=== PATIENT | female | born 1990 | race Caucasian/White ===

== ENCOUNTER 2016-11-21 15:28 | Emergency (ER) | payer BC ==
--- NOTE | ~2016-11-21 | CT71 ---
[facility] A Service [facility] RADIOLOGY TEXT RESULTS PATIENT: SHAKILA MARC LOCATION: SED : 88 UNIT #: [id number] AGE: [address]: Fermin Monge MD SEX: F ORDER DR: [id number] [place] [id number] E MR#: [id number] Acc #: [id number] NAME: SHAKILA MARC : 1990 SEX: F STUDY DATE/TIME: 11/21/2016 16:27 UNIT: SED ROOM: STUDY DESCRIPTION: CT Head Wo Contrast Attending Physician: Fermin Monge M.D. Ordering Physician: Fermin Monge M.D. Primary Care Physician: Clive Bond P.A.-C. MEDICAL IMAGING REPORT This report is preliminary unless electronic signature is present. EXAM CT head INDICATIONS Seizure day TECHNIQUE CT head without contrast. This CT exam was performed with one or more of the following radiation dose reduction techniques: automatic exposure control, adjustment of mA and/or kV according to patient size, and iterative reconstruction. COMPARISON CT head 08/03/2014 FINDINGS Ventricular size and configuration are normal. There is no evidence of acute infarct or hemorrhage. There are no extraaxial fluid collections. No mass lesion or mass effect is seen. There are no skull fractures. IMPRESSION Normal noncontrast head CT. Dictated by... Tanvir Bonds M.D. THIS IS AN ELECTRONICALLY VERIFIED REPORT Tanvir Bonds M.D. at 11/22/2016 9:54 AM [facility]/cynthia TD: 11/21/2016 17:20 JOB #: [id number] [facility] A Service [facility] RADIOLOGY TEXT RESULTS PATIENT: SHAKILA MARC LOCATION: SED : [birth year] UNIT #: [id number] AGE: [address]: Fermin Monge MD SEX: F ORDER DR: MEDICAL IMAGING REPORT Page 1 of 1
[~2016-11-21 15:28] MED LIST: BIRTH CONTROL PILL PO; CIPRO PO; DOXYCYCLINE HY100 M1 PO; FLEXERIL10 MG PO; METRONIDAZOLE PO; NAPROSYN500 MG PO; NO MEDICATIONS; PARAFON FORTE500 MG PO; ROBAXIN500 MG PO; RYBIX ODT50 MG PO; ULTRAM PO; VOLTAREN75 MG PO
[2016-11-21 16:05] LABS: URINE SOURCE CLEAN CATCH
[2016-11-21 16:08] LABS: URINE APPEARANCE CLEAR; URINE BILIRUBIN NEG (NEG); URINE BLOOD NEG (NEG); URINE COLOR YELLOW; URINE GLUCOSE NEG (NORM); URINE KETONE NEG (NEG); URINE LEUKOCYTE ESTERASE NEG (NEG); URINE NITRATE NEG (NEG); URINE PH 6.5 (5-8); URINE PROTEIN NEG (NEG); URINE SPECIFIC GRAVITY 1.025 (1.003-1.035); URINE UROBILINOGEN 0.2 MG/DL (NORM)
[2016-11-21 16:10] LABS: MICRO INDICATED? NO
[2016-11-21 16:18] LABS: AMPHETAMINE NEG (NEG); BARBITURATES NEG (NEG); BENZODIAZEPINES NEG (NEG); COCAINE NEG (NEG); MARIJUANA POS (NEG); OPIATES NEG (NEG); TRICYCLIC ANTIDEPRESSANTS NEG (NEG); U METHADONE NEG (NEG)
[2016-11-21 16:49] LABS: BASOPHIL% 0.5 % (0-2.5); EOSINOPHIL# 0.1 X10e3 (0-0.7); EOSINOPHIL% 0.6 % (0.0-7.0); HEMOGLOBIN 13.1 gm/dL (12.0-16.0); LYMPHOCYTE# 1.4 X10e3 (1.0-3.5); LYMPHOCYTE% 15.2 % (17.0-45.0); MEAN CELL VOLUME 92.7 FL (83-96); MEAN CORPUSCULAR HEMOGLOBIN 31.9 PG (28-34); MEAN CORPUSCULAR HGB CONC 34.4 g/dL (30-36); MEAN PLATELET VOLUME 7.3 FL (6.5-11.5); MONOCYTE# 0.5 X10e3 (0-1.0); MONOCYTE% 5.7 % (3.0-12.0); NEUTROPHIL# 7.3 X10e3 (1.5-7.1); PLATELET COUNT 240 X10e3 (140-420); RED CELL DISTRIBUTION WIDTH 12.6 % (11.0-15.5); WHITE BLOOD COUNT 9.4 X10e3 (4.0-10.5)
[2016-11-21 16:55] LABS: DIFF IND NO
[2016-11-21 17:07] LABS: ALBUMIN SERUM 4.2 g/dL (3.5-5.0); BILIRUBIN,TOTAL 0.4 mg/dL (0.2-2.0); CALCIUM SERUM 8.4 mg/dL (8.4-10.2); CREATININE SERUM 0.5 mg/dL (0.6-1.4); GLOM FILT RATE Estimated 133.6 mL/min (>60); POTASSIUM 3.8 mmol/L (3.5-5.1); PROTEIN TOTAL SERUM 6.8 g/dL (6.0-8.3)
== END 2016-11-21 18:07 | disposition home or self-care (01) ==
LOC: SED 15:28
PROVIDERS: Emergency Medicine
DX: G40.89 Other seizures (principal); S00.532A Contusion of oral cavity, initial encounter; F17.210 Nicotine dependence, cigarettes, uncomplicated; X58.XXXA Exposure to other specified factors, initial encounter
CPT/HCPCS: 36415; 70450; 80053; 80307; 81003; 84703; 85025; 99284

== ENCOUNTER → 2017-01-09 | Outpatient (CLI) | payer BC ==
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
--- NOTE | ~2017-01-09 | EE ---
Unit #: [id number] #: [id number] Patient: SHAKILA DELGADO [id number] [address] [address] [id number] O MR#: [id number] NAME: SHAKILA DELGADO : 1990 SEX: F STUDY DATE/TIME: 01/09/2017 UNIT: [facility] ROOM: STUDY DESCRIPTION: EEG Attending Physician: Cheikh Suarez II., M.D. Referring Physician: Cheikh Suarez II., M.D. Primary Care Physician: Mona Faria Aprn NEURODIAGNOSTICS REPORT EXAM EEG. TECH [facility]. REASON FOR STUDY Seizures. TECHNICAL INFORMATION This is a routine EEG performed using the standard international 10-20 system of electrode placement. Hyperventilation was performed. Photic stimulation was also performed. REPORT Throughout the entire study, the best background rhythm seen is approximately 10 Hz. This rhythm is seen in both posterior head regions symmetrically and does attenuate to eye opening and closure. Photic stimulation was performed, which did not elicit any epileptiform abnormalities; however, good photic driving response was seen. Hyperventilation was also performed, which did not elicit any abnormal buildup. Throughout the entire study there were no electrographic seizures recorded, nor did there appear to be any independent epileptiform abnormalities seen. No sleep was recorded during the EEG. INTERPRETATION This is a normal awake EEG. A normal EEG does not rule out the possibility of a seizure disorder. Clinical correlation is advised. Dictated by... Cheikh Suarez II., M.D. GWS/yared TD: 01/11/2017 15:53 JOB #: [id number] Unit #: [id number] #: [id number] Patient: SHAKILA DELGADO NEURODIAGNOSTICS REPORT Page 1 of 1 X NEURODIAGNOSTICS REPORT
== END | disposition home or self-care (01) ==
LOC: CMRI 07:31
DX: R56.9 Unspecified convulsions (principal); G93.89 Other specified disorders of brain
CPT/HCPCS: 70553; 95816; A9577

== ENCOUNTER → 2017-02-01 | Outpatient (CLI) | payer BC ==
--- NOTE | ~2017-02-01 | MR154 ---
[facility] A Service of [facility] RADIOLOGY TEXT RESULTS PATIENT: SHAKILA DELGADO LOCATION: [facility] : [birth year] UNIT #: [id number] AGE: [address]: Cheikh Suarez II, MD SEX: F ORDER DR: [id number] [address] [address] [id number] O MR#: [id number] Acc #: [id number] NAME: SHAKILA DELGADO : 1990 SEX: F STUDY DATE/TIME: 02/01/2017 14:46 UNIT: [facility] ROOM: STUDY DESCRIPTION: MR Pituitary Only WWo Cont Attending Physician: Cheikh Suarez II., M.D. Referring Physician: Cheikh Suarez II., M.D. Ordering Physician: Cheikh Suarez II., M.D. Primary Care Physician: Mona Faria Aprn [facility] REPORT This report is preliminary unless electronic signature is present. EXAM Pituitary MR with and without contrast, 02/01/2017 COMPARISON Brain MRI dated 01/09/2017 CLINICAL HISTORY Pituitary lesion noted incidentally on brain MRI of 01/09/17. PROCEDURE Pituitary MRI with and without contrast including dynamic seizure protocol imaging. FINDINGS There is slight upward convexity of the gland, and the stalk is thin and midline. The dynamic post-gadolinium images demonstrate homogeneous enhancement of the gland without any region of delayed enhancement. The small T2 hyperintense lesion seen in the right lateral margin of the gland about 3 mm in size, shows rapid normal enhancement but on delayed images is probably slightly hyperenhancing. There is a tiny 1 mm nonenhancing focus in the lower margin of the gland immediately to left midline and faintly T2 hyperintense. IMPRESSION 1. The T2 hyperintense focus seen in the right lower margin of the gland on 01/09/2017 is an approximate 3 mm focus of mild hyper though not accelerated enhancement of the right lower margin of the gland, may represent a tiny microadenoma. 2. 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 Remainder the gland is normal with a thin midline stalk. There is no supra or parasellar STS. [facility] A Service of [facility] & [facility] RADIOLOGY TEXT RESULTS PATIENT: SHAKILA DELGADO LOCATION: [facility] : [birth year] UNIT #: [id number] AGE: [address]: Cheikh Suarez II, MD SEX: F ORDER DR: extension or evidence of interference with the optic chiasm. Dictated by... Tr Brown M.D. THIS IS AN ELECTRONICALLY VERIFIED REPORT Tr Brown M.D. at 02/04/2017 10:53 AM [facility]/maggi TD: 02/03/2017 16:40 JOB #: [id number] [facility] REPORT Page 1 of 1
== END | disposition home or self-care (01) ==
LOC: SMRI 13:59
DX: E23.6 Other disorders of pituitary gland (principal); R93.0 Abnormal findings on diagnostic imaging of skull and head, not elsewhere classified
CPT/HCPCS: 70553; A9581